=== PATIENT | female | born 1995 | race Caucasian/White ===

== ENCOUNTER 2018-06-28 11:47 | Emergency (ER) | payer MEDICAID ==
[2018-06-28] MEDS ORDERED: RINGERS SOLUTION,LACTATED 1,000 ML IV PRN ×2 (12:44→12:56)
--- NOTE | 2018-06-28 12:44 | ER Document Report ---
ED Medical Screen (RME) - General Chief Complaint: Vomiting Stated Complaint: VOMITING,NAUSEA Time Seen by Provider: 06/28/18 11:57 Mode of Arrival: Ambulatory Information source: Patient, [facility] Records Notes: 22-year-old female at approximately 6 weeks and 5 days presents with complaint of nausea and vomiting that have been ongoing for 2 weeks with worsening over the last few days. Patient has some upper abdominal discomfort but denies any lower abdominal pain, vaginal bleeding. She has not been able to keep down any fluids or food. She has received care and reports an ultrasound which showed an IUP. I have greeted and performed a rapid initial assessment of this patient. A comprehensive ED assessment and evaluation of the patient, analysis of test results and completion of medical decision making process we will be contacted by additional ED providers. PHYSICAL EXAMINATION: GENERAL: Actively vomiting HEAD: Atraumatic, normocephalic. EYES: Pupils equal round extraocular movements intact, conjunctiva are normal. ENT: Nares patent NECK: Normal range of motion LUNGS: No respiratory distress Musculoskeletal: Normal range of motion NEUROLOGICAL: Normal speech, normal gait. PSYCH: Normal mood, normal affect. SKIN: Warm, Dry, normal turgor, no rashes or lesions noted. TRAVEL OUTSIDE OF THE [place] IN LAST 30 DAYS: No - HPI Onset: Other Onset/Duration: Persistent, Worse Quality of pain: Achy Associated Symptoms: Nausea, Vomiting. denies: Diarrhea, Fever, Vaginal bleeding Exacerbated by: Food Relieved by: Denies Similar symptoms previously: Yes Recently seen / treated by doctor: Yes - Related Data Smoking: Non-smoker Frequency of alcohol use: None Drug Abuse: None Allergies/Adverse Reactions: No Known Allergies Allergy (Verified 06/28/18 12:32) Past Medical History - Social History Chew tobacco use (# tins/day): No Frequency of alcohol use: None Drug Abuse: None Pulmonary Medical History: Reports: Hx Asthma Renal/ Medical History: Denies: Hx Peritoneal Dialysis Past Surgical History: Reports: Hx Tonsillectomy Physical Exam - Vital signs Vitals: Temp Pulse Resp BP Pulse Ox 99.7 F 104 H 20 148/84 H 100 06/28/18 12:04 06/28/18 12:04 06/28/18 12:04 06/28/18 12:04 06/28/18 12:04 Course - Vital Signs Vital signs: Temp Pulse Resp BP Pulse Ox 99.7 F 104 H 20 148/84 H 100 06/28/18 12:04 06/28/18 12:04 06/28/18 12:04 06/28/18 12:04 06/28/18 12:04
[2018-06-28] MEDS ORDERED: PROMETHAZINE HCL INJ 25 MG/1 ML VIAL IV ONE (12:45)
[2018-06-28] MEDS ORDERED: NORMAL SALINE 1000 ML 1,000 ML IV ONE ×2 (12:48→14:25)
[2018-06-28 13:28] LABS: APPEARANCE,URINE CLOUDY; BILIRUBIN,URINE NEGATIVE (NEGATIVE); COLOR,URINE AMBER; GLUCOSE, URINE NEGATIVE (NEGATIVE); KETONES,URINE 80 mg/dL (NEGATIVE); LEUKOCYTE ESTERASE,URINE LARGE (NEGATIVE); NITRITE,URINE POSITIVE (NEGATIVE); PROTEIN,URINE 100 mg/dL (NEGATIVE); URINE SPECIFIC GRAVITY 1.017
[2018-06-28 13:33] LABS: ANION GAP 15 (5-19); BLOOD UREA NITROGEN 7 mg/dL (7-20); CALCIUM 8.9 mg/dL (8.4-10.2); CARBON DIOXIDE 24 mmol/L (22-30); CHLORIDE 101 mmol/L (98-107); GLUCOSE 87 mg/dL (75-110); POTASSIUM 3.7 mmol/L (3.6-5.0); SODIUM 139.5 mmol/L (137-145)
--- NOTE | 2018-06-28 13:37 | ER Document Report ---
ED GI/ - General Chief Complaint: Vomiting Stated Complaint: VOMITING,NAUSEA Time Seen by Provider: 06/28/18 11:57 Mode of Arrival: Ambulatory Notes: Patient is slightly less than 7 weeks , G2, P1, being seen for nausea and vomiting for the past couple of weeks, but "really bad" over the past 4 days and unable to keep anything down for the past 2 days. Has not had any fever. Not having any vaginal bleeding. Has had an ultrasound showing an intrauterine . Patient says that she felt as if she had a UTI in April , but did not have insurance so just waited it out and her symptoms went away by mid May. Still has some urinary frequency but no other UTI symptoms. Patient has not had any diarrhea. She has some very minor discomfort in the right upper quadrant. Patient has had no abdominal surgeries. Had her first baby by vaginal delivery. Has never been hospitalized otherwise. Only medications are vitamins. TRAVEL OUTSIDE OF THE [place] IN LAST 30 DAYS: No - Related Data Allergies/Adverse Reactions: No Known Allergies Allergy (Verified 06/28/18 12:32) Past Medical History - General Information source: Patient, [facility] Records - Social History Smoking Status: Current Every Day Smoker Chew tobacco use (# tins/day): No Frequency of alcohol use: None Drug Abuse: None Family History: Reviewed & Not Pertinent Patient has suicidal ideation: No Patient has homicidal ideation: No Pulmonary Medical History: Reports: Hx Asthma Endocrine Medical History: Denies: Hx Diabetes Mellitus Type 1, Hx Diabetes Mellitus Type 2 Surgical Hx: Negative Past Surgical History: Reports: Hx Tonsillectomy Review of Systems - Review of Systems Notes: REVIEW OF SYSTEMS: CONSTITUTIONAL : Denies fever. Vital signs are essentially normal. Heart rate of 104 at triage. EENT: Denies eye, ear, nose or mouth or throat pain or other symptoms. CARDIOVASCULAR: Denies chest pain. RESPIRATORY: Denies cough, chest congestion, or shortness of breath. GASTROINTESTINAL: See HPI. GENITOURINARY: Denies difficulty or painful urinating, blood in urine. Some urinary frequency. MUSCULOSKELETAL: Denies back or neck pain. Denies joint pain or swelling. SKIN: Denies rash or skin lesions. NEUROLOGICAL: Denies LOC or altered mental status. Denies sensory loss or motor deficits. ALL OTHER SYSTEMS REVIEWED AND NEGATIVE. Physical Exam - Vital signs Vitals: Temp Pulse Resp BP Pulse Ox 99.7 F 104 H 20 148/84 H 100 06/28/18 12:04 06/28/18 12:04 06/28/18 12:04 06/28/18 12:04 06/28/18 12:04 Interpretation: Hypertensive - Minimal, Tachycardic - Minimal, probably normal for . - Notes Notes: PHYSICAL EXAMINATION: GENERAL: Well-appearing, in no acute distress. Blood pressure 148/84 at triage HEAD: Atraumatic, normocephalic. EYES: Pupils equal round and reactive to light, extraocular movements intact. ENT: oropharynx clear without exudates. Moist mucous membranes. NECK: Normal range of motion, supple. LUNGS: Breath sounds clear and equal bilaterally. HEART: Regular rate and rhythm without murmurs. ABDOMEN: Soft, just slightly tender in the right upper quadrant. No guarding or rebound. No masses. BACK: No tenderness throughout entire back. EXTREMITIES: Normal range of motion without pain. NEUROLOGICAL: Normal speech, normal gait. Normal sensory, motor, and reflex exams. Awake, alert, and oriented x3. Cranial nerves normal. SKIN: Warm, dry, no rashes. Course - Re-evaluation Re-evalutation: 06/28/18 13:50 IV has been established and patient will get a couple of liters of fluid. Labs will be checked. - Vital Signs Vital signs: Temp Pulse Resp BP Pulse Ox 99.8 F 98 16 115/61 99 06/28/18 15:02 06/28/18 15:02 06/28/18 15:02 06/28/18 15:02 06/28/18 15:02 - Laboratory Result Diagrams: 06/28/18 12:40 Laboratory results interpreted by me: 06/28/18 06/28/18 12:05 12:40 Beta HCG, Quant 49410.00 H Urine Protein 100 H Urine Ketones 80 H Urine Blood SMALL H Urine Nitrite POSITIVE H Urine Urobilinogen 2.0 H Ur Leukocyte Esterase LARGE H Discharge - Discharge Clinical Impression: , Vomiting, UTI (urinary tract infection) Condition: Stable Disposition: HOME, SELF-CARE Additional Instructions: You are . care is best started as early in as possible. If you're unsure about continuing this , you should discuss this with your physician or with rental car deliverer at [facility]. You should take only medications approved by your physician. Acetaminophen can safely be taken for minor pains. As a rule, medication for chronic conditions such as asthma or seizures can safely be continued. You should discuss with the physician every medicine you take. Any regular exercise program can be continued. Talk to your physician, however, before engaging in competitive or demanding sports. Alcohol, smoking, and "street drugs" are dangerous to your baby. Cocaine is especially dangerous. Don't use any illicit drugs! URINARY TRACT INFECTION: Your evaluation indicates that you have a urinary tract infection. This is due to germs growing in the bladder. This is a common problem. This infection usually responds quickly to antibiotics. Your antibiotic should be taken exactly as prescribed. Drink plenty of fluids -- three to four quarts a day. Occasionally, a bladder anesthetic will be prescribed to help stop the feeling of urgency until the antibiotic has a chance to clear the infection. This may cause your urine to be dark orange. Certain urine infections require a culture. If the doctor obtained a culture, the results will be back in two days. You should call to see if a change in treatment is needed. A repeat urinalysis after you finish treatment is often recommended. The physician will let you know if further testing is required. Call the doctor if you develop fever, chills, flank pain, inability to urinate, or blood in the urine. Rocephin You have been given an injection of an antibiotic called Rocephin ( ceftriaxone). Sometimes the injection must be combined with antibiotic pills. For some infections, such as an uncomplicated ear infection, Rocephin provides all the antibiotic that's needed. The antibiotic will be in your body for about two days. For serious infections, we usually repeat doses of Rocephin daily. Side effects are very unusual following a shot. Women may develop vaginal yeast infections, and babies can get yeast (thrush) in the mouth following the use of antibiotics. Contact your physician if you have symptoms with this medication. Allergy to this antibiotic can result in hives, wheezing, faintness, or itching. If symptoms of allergy occur, call the doctor at once. CEPHALEXIN: The antibiotic you've been prescribed is a member of the cephalosporin class. This type of antibiotic covers a wide variety of infections, including those of the skin, lungs, and urinary tract. It's useful for staph infections. This antibiotic is slightly similar to the penicillin family. In rare cases , a person who is allergic to penicillin will also be allergic to this medication. If you have had a severe allergic reaction to penicillin, and have not taken this antibiotic since that time, notify your doctor. Antibiotics which cover many germs ("broad spectrum" antibiotics) are more likely to cause diarrhea or "yeast" infections. Women prone to vaginal yeast problems may suffer an attack after taking this antibiotic. In infants, oral thrush (white spots "stuck" on the cheek) or yeast diaper rash may result. See your doctor if these problems occur. Call at once if you develop itching, hives , shortness of breath, or lightheadedness. Antinausea Medication You have been given a medication to suppress nausea and vomiting. This type of medication can be given as a shot, pill, or suppository. It will usually last for many hours. Pills and shots usually last six to eight hours, suppositories last about 12 hours. For the typical illness, only one or two doses of the medication may be necessary. Mild lightheadedness may occur. This type of medicine can cause drowsiness. Do not drive or operate dangerous machinery while under its influence. Do not mix with alcohol. See your doctor at once if you have muscle spasms or tightness, or uncontrollable motions (particularly of the neck, mouth, or jaw). Persistent vomiting or severe lightheadedness should also be evaluated by the physician. FOLLOW-UP CARE: If you have been referred to a physician for follow-up care, call the physician s office for an appointment as you were instructed or within the next two days. If you experience worsening or a significant change in your symptoms, notify the physician immediately or return to the Emergency Department at any time for re-evaluation. If you start to having a lot of nausea and vomiting again, return for us to reevaluate your condition. If you begin to running a high fever, you should return for reevaluation, as well. Prescriptions: Promethazine HCl [Phenergan 25 mg Tablet] 25 mg PO Q4HP PRN #20 tablet PRN Reason: Cephalexin [Cephalexin 250 MG Tablet] 1 tab PO QID #25 tablet Fluconazole 200 mg PO PRN PRN #1 tablet PRN Reason:
[2018-06-28] MEDS ORDERED: PROMETHAZINE HCL 25 MG TABLET PO ONE (14:46)
[2018-06-28] MEDS ORDERED: ACETAMINOPHEN 325 MG TABLET PO ONE (15:46)
[2018-06-28] MEDS ORDERED: CEFTRIAXONE 1 GM/D5W RTU 1 GM/50 ML RTUPB IV ONE (15:46)
[2018-06-28] MEDS ORDERED: METOCLOPRAMIDE HCL INJ/PF 10 MG/2 ML SDV IV ONE (15:47)
[2018-06-28] MEDS ORDERED: CEFTRIAXONE INJ 1000 MG VIAL ONE (15:49)
[2018-06-28] MEDS ORDERED: METOCLOPRAMIDE HCL INJ/PF 10 MG/2 ML SDV ONE (15:50)
[2018-06-28 17:59] VITALS: BP 120/64
== END 2018-06-28 17:59 | disposition home or self-care (01) ==
LOC: ER 11:47
DX: O23.41 Unspecified infection of urinary tract in pregnancy, first trimester (principal); O21.9 Vomiting of pregnancy, unspecified; Z3A.01 Less than 8 weeks gestation of pregnancy; F17.200 Nicotine dependence, unspecified, uncomplicated; J45.909 Unspecified asthma, uncomplicated
CPT/HCPCS: 99284; 96361; 96375; 96365; 36415; 87086; 84702; 87088; 80048; 81001; 87186; J2765; J2550; J0696; J7030; J7120; 96374

== ENCOUNTER 2018-08-22 18:22 | Inpatient (IN) | payer MEDICAID, OTHER ==
--- NOTE | 2018-08-22 19:23 | ER Document Report ---
ED Medical Screen (RME) - General Chief Complaint: Hand Pain Stated Complaint: FINGER PAIN Time Seen by Provider: 08/22/18 19:18 Mode of Arrival: Ambulatory Information source: Patient Notes: 22-year-old female at 15 weeks presents with complaints of right fourth finger pain. Patient states that she developed itching and then vesicular lesions 2 days prior to arrival. She states now she has pain in her arm. I have greeted and performed a rapid initial assessment of this patient. A comprehensive ED assessment and evaluation of the patient, analysis of test results and completion of medical decision making process we will be contacted by additional ED providers. PHYSICAL EXAMINATION: GENERAL: Well-appearing, well-nourished and in no acute distress. LUNGS: No respiratory distress Musculoskeletal: Normal range of motion NEUROLOGICAL: Normal speech, normal gait. PSYCH: Normal mood, normal affect. SKIN: Vesicular lesions on the right fourth finger. TRAVEL OUTSIDE OF THE [place] IN LAST 30 DAYS: No - HPI Onset: Other Onset/Duration: Gradual, Persistent Quality of pain: Achy Severity: Mild Associated Symptoms: denies: Fever Exacerbated by: Denies Relieved by: Denies Similar symptoms previously: Yes Recently seen / treated by doctor: Yes - Related Data Smoking: Non-smoker Frequency of alcohol use: None Drug Abuse: None Allergies/Adverse Reactions: No Known Allergies Allergy (Verified 08/22/18 18:26) Past Medical History Pulmonary Medical History: Reports: Hx Asthma Endocrine Medical History: Denies: Hx Diabetes Mellitus Type 1, Hx Diabetes Mellitus Type 2 Renal/ Medical History: Denies: Hx Peritoneal Dialysis Past Surgical History: Reports: Hx Tonsillectomy Physical Exam - Vital signs Vitals: Temp Pulse Resp BP Pulse Ox 98.9 F 99 16 138/83 H 99 08/22/18 18:41 08/22/18 18:41 08/22/18 18:41 08/22/18 18:41 08/22/18 18:41 Course - Vital Signs Vital signs: Temp Pulse Resp BP Pulse Ox 98.9 F 99 16 138/83 H 99 08/22/18 18:41 18 18:41 08/22/18 18:41 08/22/18 18:41 08/22/18 18:41
[2018-08-22] MEDS ORDERED: CEFTRIAXONE 1 GM/D5W RTU 1 GM/50 ML RTUPB IV ONE (20:34)
[2018-08-22 20:40] LABS: ABSOLUTE LYMPHOCYTES (AUTO) 2.1 10^3/uL (0.5-4.7); ABSOLUTE MONOCYTES (AUTO) 0.5 10^3/uL (0.1-1.4); ABSOLUTE NEUT (AUTO) 5.7 10^3/uL (1.7-8.2); BASOPHILS % (AUTO) 0.3 % (0-2); EOSINOPHILS % (AUTO) 0.4 % (0-6); HEMATOCRIT 35.9 % (36.0-47.0); HEMOGLOBIN 12.8 g/dL (12.0-15.5); LYMPHOCYTES % (AUTO) 25.5 % (13-45); MEAN CORPUSCULAR HEMOGLOBIN 30.6 pg (27.0-33.4); MEAN CORPUSCULAR HGB CONC 35.7 g/dL (32.0-36.0); MEAN CORPUSCULAR VOLUME 86 fl (80-97); MONOCYTES % (AUTO) 5.6 % (3-13); PLATELET COUNT 257 10^3/uL (150-450); RED CELL DISTRIBUTION WIDTH 13.5 % (11.5-14.0); SEGMENTED NEUTROPHILS % (AUTO) 68.2 % (42-78); TOTAL CELLS COUNTED % (AUTO) 100 %; WHITE BLOOD COUNT 8.4 10^3/uL (4.0-10.5)
[2018-08-22 21:00] LABS: ALANINE AMINOTRANSFERASE 28 U/L (9-52); ALBUMIN 3.7 g/dL (3.5-5.0); ALKALINE PHOSPHATASE 71 U/L (38-126); ANION GAP 8 (5-19); ASPARTATE AMINO TRANSFERASE 21 U/L (14-36); BILIRUBIN,DIRECT 0.4 mg/dL (0.0-0.4); BILIRUBIN,TOTAL 0.4 mg/dL (0.2-1.3); BLOOD UREA NITROGEN 8 mg/dL (7-20); CALCIUM 9.1 mg/dL (8.4-10.2); CARBON DIOXIDE 23 mmol/L (22-30); CHLORIDE 105 mmol/L (98-107); GLUCOSE 97 mg/dL (75-110); SODIUM 135.8 mmol/L (137-145); TOTAL PROTEIN 6.6 g/dL (6.3-8.2)
--- NOTE | 2018-08-22 21:12 | ER Document Report ---
ED Hand/Wrist Injury - General Chief Complaint: Hand Pain Stated Complaint: FINGER PAIN Time Seen by Provider: 08/22/18 19:18 Mode of Arrival: Ambulatory Information source: Patient Notes: Patient is a 22-year-old female comes in emergency room with a complaint of right ring finger infection with redness going up her arm and her right axilla is painful. Patient states that she has a blister on the side of her middle finger. She states that she has a breakout of a blister type presentation on that same spot occasionally in the last breakout was about 2 years ago. This time 3 days ago she noticed that it started to become red and appears somewhat infected. By this morning she got up and the top of her hand to mid forearm on top was red and she noticed discomfort under her right armpit. She went to a walk-in clinics and they sent her to the emergency room. Patient denies any other medical history with the exception of she informs me that she is 15 weeks gestation. She also smokes 2-4 cigarettes a day. She states she is trying to stop. She denies any fever or shortness of breath. Patient states that she only has a mild amount of discomfort. She has full range of motion with her finger. TRAVEL OUTSIDE OF THE [place] IN LAST 30 DAYS: No - HPI Patient complains to provider of: Infection of right ring finger Injury to: Forearm, Ring finger Onset: Other Where: Home - 3 days ago Timing: Constant, Worse Quality of pain: Throbbing Severity: Mild Pain Level: 2 - Related Data Allergies/Adverse Reactions: No Known Allergies Allergy (Verified 08/22/18 18:26) Past Medical History - General Information source: Patient - Social History Smoking Status: Current Some Day Smoker Cigarette use (# per day): Yes - 4 cigarettes a day Chew tobacco use (# tins/day): No Smoking Education Provided: No Frequency of alcohol use: None Drug Abuse: None Family History: Reviewed & Not Pertinent Patient has suicidal ideation: No Patient has homicidal ideation: No Pulmonary Medical History: Reports: Hx Asthma Endocrine Medical History: Denies: Hx Diabetes Mellitus Type 1, Hx Diabetes Mellitus Type 2 Renal/ Medical History: Denies: Hx Peritoneal Dialysis Past Surgical History: Reports: Hx Tonsillectomy Review of Systems - Review of Systems Constitutional: No symptoms reported EENT: No symptoms reported Cardiovascular: No symptoms reported Respiratory: No symptoms reported Gastrointestinal: No symptoms reported Genitourinary: No symptoms reported Female Genitourinary: No symptoms reported Musculoskeletal: No symptoms reported, Joint pain, Joint swelling Skin: Other - Redness and swelling/lymphangitis Hematologic/Lymphatic: No symptoms reported Neurological/Psychological: No symptoms reported Physical Exam - Vital signs Vitals: Temp Pulse Resp BP Pulse Ox 98.9 F 99 16 138/83 H 99 08/22/18 18:41 08/22/18 18:41 08/22/18 18:41 08/22/18 18:41 08/22/18 18:41 Interpretation: Normal, Hypertensive - Notes Notes: Well-nourished well-developed 22-year-old female no apparent distress - General General appearance: Appears well, Alert - HEENT Head: Normocephalic, Atraumatic Eyes: Normal - Respiratory Respiratory status: No respiratory distress Chest status: Nontender Breath sounds: Normal. No: Rales, Rhonchi, Stridor, Wheezing Chest palpation: Normal - Cardiovascular Rhythm: Regular Heart sounds: Normal auscultation Murmur: No - Abdominal Inspection: Gravid female Distension: No distension Bowel sounds: Normal Tenderness: Nontender Organomegaly: No organomegaly - Extremities General upper extremity: Tender, Normal color, Normal ROM, Normal strength, Other - Examination of patient's right ring finger shows she has an area on the lateral side near the little finger of the MIP appears to be a bunch of vesicles or pustules. Very minute may be to 3 mm across. But the patch together is directly on the lateral aspect of the knuckle. From there the redness starts and this ascends up the arm from the top of the hand to mid forearm on the dorsal aspect. From there and further evaluation patient has some mild palpable lymph nodes under the right axilla. They are tender to palpate. General lower extremity: Normal inspection, Normal ROM, Normal strength - Neurological Neuro grossly intact: Yes Cognition: Normal Orientation: AAOx4 John Coma Scale Eye Opening: Spontaneous John Coma Scale Verbal: Oriented John Coma Scale Motor: Obeys Commands John Coma Scale Total: 15 Speech: Normal - Skin Skin Temperature: Warm Skin Moisture: Dry Skin Color: Erythema, Other - See description in hand Course - Re-evaluation Re-evalutation: 08/22/18 21:18 I discussed case with Dr. Hinkle and he agrees the patient needs to be admitted to medicine. IV antibiotics. She is original labs come back with her CBC being normal at this time. Lactic acid is normal at this time. I contacted patient's primary care provider Dr. Eloy Haney who is going to admit the patient to regular floor. I agree the telemetry is not needed. Patient looks spectacular and does not appear ill at this time. With her limited history feel that inpatient and medical bed is fine. 08/22/18 21:19 08/22/18 21:19 08/22/18 21:50 - Vital Signs Vital signs: Temp Pulse Resp BP Pulse Ox 98.9 F 99 16 138/83 H 99 08/22/18 18:41 08/22/18 18:41 08/22/18 18:41 08/22/18 18:41 08/22/18 18:41 - Laboratory Result Diagrams: 08/22/18 20:26 08/22/18 20:26 Laboratory results interpreted by me: 08/22/18 08/22/18 08/22/18 20:26 20:26 20:26 Hct 35.9 L Sodium 135.8 L Creatinine 0.47 L Lactic Acid 0.6 L Discharge - Discharge Clinical Impression: Superficial injury of right ring finger with infection, Acute lymphangitis, Lymphadenopathy, axillary Condition: Stable Disposition: ADMITTED INPATIENT Admitting Provider: [facility] Admitted: Medical Floor Forms: Smoking Cessation Education
--- NOTE | 2018-08-22 22:02 | RADIOLOGY REPORT (SQ) ---
Right hand three views HISTORY: Right hand pain, trauma. FINDINGS: Bony alignment is anatomic. No fracture or dislocation. Soft tissues are unremarkable. No radiopaque foreign body. IMPRESSION: No fracture.
--- NOTE | 2018-08-23 07:52 | PDOC H&P ---
History of Present Illness Admission Date/PCP: 08/22/18 21:56 Patient complains of: R ring finger blisters & pain from trapezius down History of Present Illness: CHRISTIAN CHOWDHURY is a 22 year old female with 2d clustered vesicles on ulnar R 4th middle phalanx and pink patches to mid dorsal forearm and paresthesia & dysesthesia from trapezius to medial arm to dorsal forearm and 4th ray. ER cultured and started ceftriaxone. She had varicella because she did not get shots till age 13. In last 3 years she has had vessicles on same finger 10 times. Last relapse was 2y ago. No prior serology or antivirals were tried. She is 15w by dates & US. Past Medical History Cardiac Medical History: Reports: None Pulmonary Medical History: Reports: Asthma EENT Medical History: Reports: None Neurological Medical History: Reports: None Endocrine Medical History: Reports: Obesity Renal/ Medical History: Reports: None Malignancy Medical History: Reports: None GI Medical History: Reports: Other - constipation Musculoskeltal Medical History: Reports: None Skin Medical History: Reports: None Psychiatric Medical History: Reports: None Traumatic Medical History: Reports: None Hematology: Reports: None Infectious Medical History: Reports: None Past Surgical History Past Surgical History: Reports: Tonsillectomy Social History Information Source: Dr. March Lives with: Family Smoking Status: Current Some Day Smoker Cigarettes Packs Per Day: 0.5 Frequency of Alcohol Use: None Drugs: None Hx Prescription Drug Abuse: No - Advance Directive Resuscitation Status: Full Code Family History Family History: Thyroid Disfunction, Other - M seizures Parental Family History Reviewed: Yes Children Family History Reviewed: Yes Sibling(s) Family History Reviewed.: Yes Medication/Allergy Home Medications: Pnv No.103/Folic/Om3s/Fish Oil [ Gummies] 2 tbs PO DAILY 06/28/18 Promethazine HCl [Phenergan 25 mg Tablet] 25 mg PO Q4HP PRN #20 tablet 06/28/18 Allergies/Adverse Reactions: No Known Allergies Allergy (Verified 08/22/18 18:26) Review of Systems Constitutional: ABSENT: fever(s), headache(s), weight loss Nose, Mouth, and Throat: ABSENT: sore throat Cardiovascular: ABSENT: dyspnea on exertion, orthropnea Respiratory: ABSENT: cough Gastrointestinal: PRESENT: constipation, nausea. ABSENT: abdominal pain, hematochezia Genitourinary: ABSENT: dysuria Integumentary: PRESENT: lesions Neurological: PRESENT: paresthesias Physical Exam Vital Signs: Temp Pulse Resp BP Pulse Ox 98.8 F 84 16 110/56 L 100 08/23/18 04:30 08/23/18 04:30 08/23/18 04:30 08/23/18 04:30 08/23/18 04:30 General appearance: PRESENT: no acute distress Eye exam: ABSENT: conjunctival injection Mouth exam: PRESENT: moist, neck supple Neck exam: ABSENT: lymphadenopathy, tenderness, thyromegaly, tracheal deviation Respiratory exam: PRESENT: clear to auscultation lyn Cardiovascular exam: ABSENT: diastolic murmur, irregular rhythm, systolic murmur GI/Abdominal exam: ABSENT: mass, organolmegaly, tenderness Extremities exam: ABSENT: pedal edema Neurological exam: PRESENT: oriented to situation Psychiatric exam: PRESENT: appropriate affect Skin exam: PRESENT: erythema - dorsal R 4th ray and lower half dorsal forearm suggesting 2cm maclues. Tender there & R axilla with no palpable nodes., vesicles - clustered on red patch ulnar R 3rd middle phalanx Results Laboratory Results: Abnormal - 24 hr 08/22/18 08/22/18 08/22/18 20:26 20:26 20:26 Hct 35.9 L Sodium 135.8 L Creatinine 0.47 L Lactic Acid 0.6 L Impressions: Hand X-Ray 08/22/18 21:37 IMPRESSION: No fracture. Assessment & Plan - Diagnosis (1) Herpesviral vesicular dermatitis Is this a current diagnosis for this admission?: Yes Plan: HSV1&2 serology. Acyclovir. Continue ceftri for now. (2) Acute pain associated with herpes zoster Is this a current diagnosis for this admission?: Yes Plan: suspected if not HSV1. (3) Encounter for supervision of other normal , second trimester Is this a current diagnosis for this admission?: Yes (4) Mild intermittent asthma, uncomplicated Is this a current diagnosis for this admission?: Yes (5) Slow transit constipation Is this a current diagnosis for this admission?: Yes - Inpatient Certification Medical Necessity: Need Close Monitoring Due to Risk of Patient Decompensation, Need for IV Antibiotics, Risk of Complication if Not Cared For in Hospital, Risk of Diagnosis Which Will Require Inpatient Eval/Care/Monitoring
[2018-08-23] MEDS: ACETAMINOPHEN 325 MG TABLET PO PRN ×2 (09:38→17:47)
[2018-08-23] MEDS ORDERED: PRENATAL VITAMIN W DHA CAPSULE PO SCH (10:00)
[2018-08-23] MEDS ORDERED: ENOXAPARIN SODIUM INJ 40 MG/0.4 ML DISP.SYRIN SUBCUT SCH (10:00)
[2018-08-23] MEDS: ACYCLOVIR 800 MG TABLET PO SCH ×3 (10:30→17:47)
[2018-08-23] MEDS ORDERED: CEFTRIAXONE 1 GM/D5W RTU 1 GM/50 ML RTUPB IV SCH (18:00)
[2018-08-23] MEDS ORDERED: CEFTRIAXONE SODIUM 1,000 MG in DEXTROSE 5%-WATER 50 ML IV SCH (18:00)
[2018-08-23] MEDS ORDERED: ACYCLOVIR 800 MG TABLET PO SCH (22:00)
[2018-08-24] MEDS: ACYCLOVIR 800 MG TABLET PO SCH (05:50)
--- NOTE | 2018-08-24 06:55 | PDOC DISCHARGE SUMMARY ---
General - Admit/Disc Date/PCP Admission Date/Primary Care Provider: 08/22/18 21:56 Discharge Date: 08/24/18 - Discharge Diagnosis (1) Herpesviral vesicular dermatitis Is this a current diagnosis for this admission?: Yes (2) Acute pain associated with herpes zoster Is this a current diagnosis for this admission?: Yes (3) Encounter for supervision of other normal , second trimester Is this a current diagnosis for this admission?: Yes (4) Mild intermittent asthma, uncomplicated Is this a current diagnosis for this admission?: Yes (5) Slow transit constipation Is this a current diagnosis for this admission?: Yes - Additional Information Resuscitation Status: Full Code Discharge Diet: Regular Discharge Activity: Activity As Tolerated Prescriptions: Acyclovir [Zovirax 800 mg Tablet] 800 mg PO 0600,1000,1400,1800 #30 tablet Cephalexin Monohydrate [Keflex 500 mg Capsule] 500 mg PO QID 5 Days #2 capsule Home Medications: 95/Iron Fum/Folic/Dha [ + Dha Combo Pack] 1 each PO DAILY 08/23 Promethazine HCl [Phenergan 25 mg Tablet] 25 mg PO Q4HP PRN 08/23/18 Acyclovir [Zovirax 800 mg Tablet] 800 mg PO 0600,1000,1400,1800 #30 tablet 08/24 Cephalexin Monohydrate [Keflex 500 mg Capsule] 500 mg PO QID 5 Days #2 capsule 08/24/18 History of Present Illness History of Present Illness: CHRISTIAN CHOWDHURY is a 22 year old female with 2d clustered vesicles on ulnar R 4th middle phalanx and pink patches to mid dorsal forearm and paresthesia & dysesthesia from trapezius to medial arm to dorsal forearm and 4th ray. ER cultured and started ceftriaxone. She had varicella because she did not get shots till age 13. In last 3 years she has had vessicles on same finger 10 times. Last relapse was 2y ago. No prior serology or antivirals were tried. She is 15w by dates & US. Hospital Course Hospital Course: hand and wrist much better on acyclovir & ceftriaxone. Redness gone. HSV 1&2 pending. Physical Exam Vital Signs: Temp Pulse Resp BP Pulse Ox 98.3 F 78 18 107/55 L 98 08/23/18 23:36 08/23/18 23:36 08/23/18 23:36 08/23/18 23:36 08/23/18 23:36 Intake & Output 08/22/18 08/23/18 08/24/18 07:59 07:59 07:59 Intake Total 240 50 Balance 240 50 Weight 199 lb 8.293 oz General appearance: PRESENT: no acute distress Respiratory exam: PRESENT: clear to auscultation lyn Cardiovascular exam: ABSENT: diastolic murmur, irregular rhythm, systolic murmur GI/Abdominal exam: ABSENT: mass, organolmegaly, tenderness Neurological exam: PRESENT: oriented to situation Psychiatric exam: PRESENT: appropriate affect Results Laboratory Results: Labs- Last Values WBC 8.4 10^3/uL (4.0-10.5) 08/22/18 20:26 RBC 4.20 10^6/uL (3.72-5.28) 08/22/18 20:26 Hgb 12.8 g/dL (12.0-15.5) 08/22/18 20:26 Hct 35.9 % (36.0-47.0) L 08/22/18 20:26 MCV 86 fl (80-97) 08/22/18 20:26 MCH 30.6 pg (27.0-33.4) 08/22/18 20:26 MCHC 35.7 g/dL (32.0-36.0) 08/22/18 20:26 RDW 13.5 % (11.5-14.0) 08/22/18 20:26 Plt Count 257 10^3/uL (150-450) 08/22/18 20:26 Seg Neutrophils % 68.2 % (42-78) 08/22/18 20:26 Lymphocytes % 25.5 % (13-45) 08/22/18 20:26 Monocytes % 5.6 % (3-13) 08/22/18 20:26 Eosinophils % 0.4 % (0-6) 08/22/18 20:26 Basophils % 0.3 % (0-2) 08/22/18 20:26 Absolute Neutrophils 5.7 10^3/uL (1.7-8.2) 08/22/18 20:26 Absolute Lymphocytes 2.1 10^3/uL (0.5-4.7) 08/22/18 20:26 Absolute Monocytes 0.5 10^3/uL (0.1-1.4) 08/22/18 20:26 Absolute Eosinophils 0.0 10^3/uL (0.0-0.6) 08/22/18 20:26 Absolute Basophils 0.0 10^3/uL (0.0-0.2) 08/22/18 20:26 Sodium 135.8 mmol/L (137-145) L 08/22/18 20:26 Potassium 4.0 mmol/L (3.6-5.0) 08/22/18 20:26 Chloride 105 mmol/L (98-107) 08/22/18 20:26 Carbon Dioxide 23 mmol/L (22-30) 08/22/18 20:26 Anion Gap 8 (5-19) 08/22/18 20:26 BUN 8 mg/dL (7-20) 08/22/18 20:26 Creatinine 0.47 mg/dL (0.52-1.25) L 08/22/18 20:26 Est GFR ( Amer) > 60 (>60) 08/22/18 20:26 Est GFR (Non-Af Amer) > 60 (>60) 08/22/18 20:26 Glucose 97 mg/dL (75-110) 08/22/18 20:26 Lactic Acid 0.6 mmol/L (0.7-2.1) L 08/22/18 20:26 Calcium 9.1 mg/dL (8.4-10.2) 08/22/18 20:26 Total Bilirubin 0.4 mg/dL (0.2-1.3) 08/22/18 20:26 Direct Bilirubin 0.4 mg/dL (0.0-0.4) 08/22/18 20:26 Neonat Total Bilirubin Not Reportable 08/22/18 20:26 Neonat Direct Bilirubin Not Reportable 08/22/18 20:26 Neonat Indirect Bili Not Reportable 08/22/18 20:26 AST 21 U/L (14-36) 08/22/18 20:26 ALT 28 U/L (9-52) 08/22/18 20:26 Alkaline Phosphatase 71 U/L (38-126) 08/22/18 20:26 Total Protein 6.6 g/dL (6.3-8.2) 08/22/18 20:26 Albumin 3.7 g/dL (3.5-5.0) 08/22/18 20:26 Impressions: Hand X-Ray 08/22/18 21:37 IMPRESSION: No fracture. Qualifiers - * PATIENT BEING DISCHARGED WITH ANY OF THE FOLLOWING DIAGNOSIS: No Plan Discharge Plan: home. 1w ov
[2018-08-24 08:55] VITALS: BP 119/81
[2018-08-24] MEDS ORDERED: ACYCLOVIR 800 MG TABLET PO SCH (10:00)
== END 2018-08-24 10:11 | disposition home or self-care (01) | DRG 156 ==
LOC: ER 18:22 → EH 21:56 → 2N 23:48
PROVIDERS: ADMIT Family Medicine; ATTEND Family Medicine
DX: B00.1 Herpesviral vesicular dermatitis (principal); R52 Pain, unspecified; O99.512 Diseases of the respiratory system complicating pregnancy, second trimester; O99.212 Obesity complicating pregnancy, second trimester; E66.9 Obesity, unspecified; Z3A.15 15 weeks gestation of pregnancy; O99.334 Smoking (tobacco) complicating childbirth; F17.210 Nicotine dependence, cigarettes, uncomplicated; K59.01 Slow transit constipation; O99.612 Diseases of the digestive system complicating pregnancy, second trimester
CPT/HCPCS: 36415; 80053; 83605; 85025; 86695; 87040; 87070; 87205; 96365; 99284; J0696; J1650; J3490